=== PATIENT | female | born 1985 | race Caucasian/White ===

== ENCOUNTER 2021-12-05 13:32 | Emergency (ER) | payer SELFPAY ==
--- OUTSIDE RECORDS SUMMARY | 2021-12-05 13:34 | XMS REPORT | Continuity of Care Document ---
:1985 Author Organization [facility] t Address [address] [place] [address] Care Team Providers Name Role Phone Unavailable Unavailable Unavailable Payers Payer Name Policy Type Policy Number Effective Date Expiration Date S ource Problems This patient has no known problems. Allergies, Adverse Reactions, Alerts Allergy Allergy Status Severity Reaction(s) Onset Inactive Treating Comm ents Source Name Type Date Date Clinician No Known DA Active U [facility] Allergie 10-16 [facility] s 00:00: d 00 [facility] No Known DA Active U [facility] Medications This patient has no known medications. Procedures This patient has no known procedures. Encounters Start End Encounter Admission Attending Care Care Encounter Source Date/Time Date/Time Type Type Clinicians Facility Department ID 2020-10-16 Inpatient [facility] ALLIE [id number] [facility] 10:04:00 [id number] [facility] Results Test Description Test Time Test Comments Results Result Comments Source BASIC METABOLIC PANEL 2020-10-16 12:37:00 Test Item Value Reference Range Interpretation Comme nts SODIUM (test code = NA) 133 mmol/l 134.0-147.0 L POTASSIUM (test code = K) 4.8 mmol/L 3.6-5.2 N CHLORIDE (test code = CL) 101 mmol/l 98.0-107.0 N CARBON DIOXIDE (test code = CO2) 23.1 mmol/l 21.0-33.0 N ANION GAP (test code = GAP) 13.7 0-20 N GLUCOSE (test code = GLU) 99 mg/dl 70.0-110.0 N BLOOD UREA NITROGEN (test code = BUN) 9 mg/dl 7.0-18.0 N CREATININE (test code = CREAT) 0.51 mg/dL 0.60-1.30 L GFR NON BLACK (test code = GFRNONBLACK) 145 mL/min 105-110 H GFR BLACK (test code = GFRBLACK) 175 mL/min 127-133 H CALCIUM (test code = CA) 9.1 mg/dl 8.0-10.5 N HEPATIC FUNCTION PANEL [id number] 12:37:00 Test Item Value Reference Range Interpretation Comments TOTAL PROTEIN (test code = PROT) 7.3 gm/dL 6.4-8.2 N ALBUMIN (test code = ALB) 3.5 gm/dl 3.2-4.7 N BILIRUBIN TOTAL (test code = BILT) 0.5 mg/dl 0.0-1.0 N BILIRUBIN DIRECT (test code = 0 mg/dl 0.0-0.3 N BILD) SGOT/AST (test code = AST) 77 Units/L 15-37 H SGPT/ALT (test code = ALT) 32 Units/L 12.0-78.0 N ALKALINE PHOSPHATASE TOTAL (test 70 Units/L 50.0-136.0 N code = ALKP) [id number] 12:37:00 Test Item Value Reference Range Interpretation Comments LIPASE (test code = LIP) 122 Units/L 65.0-230.0 N - CT ABD PELVIS [id number] 12:30:00 [facility] : 1985 Sex: F FAX: Josephine Lomeli DO [phone] Garibaldi: St: REG Name: KIRK NAGEL [facility] : 1985 Age/S: 35/F [address] Unit: [id number] Loc: EDORETHA [place], [place] Phys: LomeliJosephine givens [id number] Acct: [id number] Dis Date: Status: REG ER PHONE #: [phone] Exam Date: 10/16/2020 1213 FAX #: [phone] Reason: Mod periumbilical abd painEXAMS: CPT CODE: [id number] CT ABD PELVIS W/CONT [id number] HISTORY: Mod periumbilical abd pain TECHNIQUE: Helical imaging of the abdomen and pelvis is performed with intravenous contrast. Approximately 100 mL of intravenous contrast was administered. Oral contrast is administered. Sagittal and coronal reconstructions reviewed. CT DLP dose: 488 mGy-cm. Iterative dose reduction technique was utilized. Location T18 Comparisonstudy: None FINDINGS: The images of the lung bases demonstrate no masses, effusions or infiltrates. Heart size is normal. There is no pericardial effusion. The liver is homogeneous, free of focal masses and dilated intrahepatic ducts. The gallbladder is unremarkable. The spleen is normal in size and contour. The pancreas is morphologically normal. No mass, pancreatic duct dilatation or peripancreatic edema is visible. The adrenal glands are normal in size and contour. Neither cystic nor solid renal masses are visible. No hydronephrosis is seen. No renal calculi or perinephric stranding. The urinary bladder is unremarkable. Stomach and duodenum appear unremarkable. The visualized small bowel is unremarkable without evidence of bowel thickening or obstruction. The colon is unremarkable. Normal appendix noted. The uterus is unremarkable. No adnexal masses noted. No retroperitoneal lymphadenopathy is present. The aorta is of normal caliber. The IVC is patent. The portal vein is patent. No evidence of ascites. Abdominal wall is intact. No significant bone lesions. PAGE 1 Signed Report (CONTINUED) FAX: Josephine Lomeli DO [phone] Garibaldi: St: REG -- Name: KIRK NAGEL [facility] : 1985 Age/S: 35/F [address] [facility] [address] Unit: [id number] [place]: [place] [id number] Acct: [id number] Dis Date: Status: REG ER PHONE #: [phone] Exam Date: 10/16/2020 1213 FAX #: [phone] Reason: Mod periumbilical abd pain EXAMS: CPT CODE: [id number] CT ABD PELVIS W/CONT [id number] <Continued> IMPRESSION: 1. Normal appendix seen. 2. No acute abnormality seen. at 1230 Reported and signed by: FERNANDO ALVARADO M.D. CC: Josephine Lomeli DO Technologist: VERN FROST;JEFFRY DAMIAN Trnscrd Dt/Tm: 10/16/2020 (5210) [id number] Orig Print D/T: S: 10/16/2020 (1233 PAGE 2Signed ReportURINALYSIS [id number] 11:52:00 Test Item Value Reference Range Interpretation Comments UA COLOR (test code = COLU) YELLOW UA APPEARANCE (test code = SLHZY APPU) UA GLUCOSE DIPSTICK (test NORMAL mg/dl NORMAL code = DGLUU) UA BILIRUBIN DIPSTICK (test NEGATIVE mg/dL NEGATIVE code = BILU) UA KETONE DIPSTICK (test NEGATIVE mg/dl NEGATIVE code = KETU) UA SPECIFIC GRAVITY (test 1.025 1.000-1.030 code = SGU) UA BLOOD DIPSTICK (test NEGATIVE Loyd/micL NEGATIVE code = GORDO) UA PH DIPSTICK (test code = 5.0 5.0-9.0 JASSI) UA PROTEIN DIPSTICK (test NEGATIVE mg/dl NEGATIVE code = PROU) UA UROBILINIOGEN DIPSTICK NORMAL mg/dl NORMAL (test code = URO) UA NITRITE DIPSTICK (test NEGATIVE NEGATIVE code = RAJESH) UA LEUKOCYTE ESTERASE NEGATIVE Suma/micL NEGATIVE DIPSTICK (test code = LEUU) UA WBC (test code = WBCU) 0-3 WBC/HPF NONE UA RBC (test code = RBCU) 0-2 RBC/HPF 0-3 UA EPITHELIAL CELLS (test 5-10 EPI/HPF 0-3 A code = EPIU) UA BACTERIA (test code = FEW NONE BACU) Specimen comments: Clean CatchUR HCG [id number] 11:52:00 Test Item Value Reference Range Interpretation Comments UR HCG QUAL (test code = HCGQLU) NEGATIVE NEGATIVE Specimen comments: Clean CatchURINALYSIS [id number] 11:50:00 Test Item Value Reference Range Interpretation Comments UA COLOR (test code = COLU) YELLOW UA APPEARANCE (test code = SLHZY APPU) UA GLUCOSE DIPSTICK (test NORMAL mg/dl NORMAL code = DGLUU) UA BILIRUBIN DIPSTICK (test NEGATIVE mg/dL NEGATIVE code = BILU) UA KETONE DIPSTICK (test NEGATIVE mg/dl NEGATIVE code = KETU) UA SPECIFIC GRAVITY (test 1.025 1.000-1.030 code = SGU) UA BLOOD DIPSTICK (test NEGATIVE Loyd/micL NEGATIVE code = GORDO) UA PH DIPSTICK (test code = 5.0 5.0-9.0 JASSI) UA PROTEIN DIPSTICK (test NEGATIVE mg/dl NEGATIVE code = PROU) UA UROBILINIOGEN DIPSTICK NORMAL mg/dl NORMAL (test code = URO) UA NITRITE DIPSTICK (test NEGATIVE NEGATIVE code = RAJESH) UA LEUKOCYTE ESTERASE NEGATIVE Suma/micL NEGATIVE DIPSTICK (test code = LEUU) UA WBC (test code = WBCU) WBC/HPF NONE UA RBC (test code = RBCU) RBC/HPF 0-3 UA EPITHELIAL CELLS (test EPI/HPF 0-3 code = EPIU) UA BACTERIA (test code = NONE BACU) Specimen comments: Clean CatchUR HCG [id number] 11:50:00 Test Item Value Reference Range Interpretation Comments UR HCG QUAL (test code = HCGQLU) NEGATIVE Specimen comments: Clean CatchURINALYSIS [id number] 11:50:00 Test Item Value Reference Range Interpretation Comments UA COLOR (test code = COLU) YELLOW UA APPEARANCE (test code = SLHZY APPU) UA GLUCOSE DIPSTICK (test NORMAL mg/dl NORMAL code = DGLUU) UA BILIRUBIN DIPSTICK (test NEGATIVE mg/dL NEGATIVE code = BILU) UA KETONE DIPSTICK (test NEGATIVE mg/dl NEGATIVE code = KETU) UA SPECIFIC GRAVITY (test 1.025 1.000-1.030 code = SGU) UA BLOOD DIPSTICK (test NEGATIVE Loyd/micL NEGATIVE code = GORDO) UA PH DIPSTICK (test code = 5.0 5.0-9.0 JASSI) UA PROTEIN DIPSTICK (test NEGATIVE mg/dl NEGATIVE code = PROU) UA UROBILINIOGEN DIPSTICK NORMAL mg/dl NORMAL (test code = URO) UA NITRITE DIPSTICK (test NEGATIVE NEGATIVE code = RAJESH) UA LEUKOCYTE ESTERASE NEGATIVE Suma/micL NEGATIVE DIPSTICK (test code = LEUU) UA WBC (test code = WBCU) WBC/HPF NONE UA RBC (test code = RBCU) RBC/HPF 0-3 UA EPITHELIAL CELLS (test EPI/HPF 0-3 code = EPIU) UA BACTERIA (test code = NONE BACU) Specimen comments: Clean CatchUR HCG [id number] 11:50:00 Test Item Value Reference Range Interpretation Comments UR HCG QUAL (test code = HCGQLU) NEGATIVE NEGATIVE Specimen comments: Clean CatchBASIC METABOLIC [id number] 11:42:00 Test Item Value Reference Range Interpretation Comments SODIUM (test code = NA) 133 mmol/l 134.0-147.0 L POTASSIUM (test code = K) 4.8 mmol/L 3.6-5.2 N CHLORIDE (test code = CL) 101 mmol/l 98.0-107.0 N CARBON DIOXIDE (test code = CO2) 23.1 mmol/l 21.0-33.0 N ANION GAP (test code = GAP) 13.7 0-20 N GLUCOSE (test code = GLU) 99 mg/dl 70.0-110.0 N BLOOD UREA NITROGEN (test code = 9 mg/dl 7.0-18.0 N BUN) CREATININE (test code = CREAT) 0.51 mg/dL 0.60-1.30 L GFR NON BLACK (test code = 145 mL/min 105-110 H GFRNONBLACK) GFR BLACK (test code = GFRBLACK) 175 mL/min 127-133 H CALCIUM (test code = CA) 9.1 mg/dl 8.0-10.5 N HEPATIC FUNCTION PANEL [id number] 11:42:00 Test Item Value Reference Range Interpretation Comments TOTAL PROTEIN (test code = PROT) 7.3 gm/dL 6.4-8.2 N ALBUMIN (test code = ALB) 3.5 gm/dl 3.2-4.7 N BILIRUBIN TOTAL (test code = BILT) 0.5 mg/dl 0.0-1.0 N BILIRUBIN DIRECT (test code = 0 mg/dl 0.0-0.3 N BILD) SGOT/AST (test code = AST) Units/L 15-37 SGPT/ALT (test code = ALT) 32 Units/L 12.0-78.0 N ALKALINE PHOSPHATASE TOTAL (test 70 Units/L 50.0-136.0 N code = ALKP) [id number] 11:42:00 Test Item Value Reference Range Interpretation Comments LIPASE (test code = LIP) 122 Units/L 65.0-230.0 N BASIC METABOLIC [id number] 11:36:00 Test Item Value Reference Range Interpretation Comments SODIUM (test code = NA) 133 mmol/l 134.0-147.0 L POTASSIUM (test code = K) 4.8 mmol/L 3.6-5.2 N CHLORIDE (test code = CL) 101 mmol/l 98.0-107.0 N CARBON DIOXIDE (test code = CO2) 23.1 mmol/l 21.0-33.0 N ANION GAP (test code = GAP) 13.7 0-20 N GLUCOSE (test code = GLU) 99 mg/dl 70.0-110.0 N BLOOD UREA NITROGEN (test code = 9 mg/dl 7.0-18.0 N BUN) CREATININE (test code = CREAT) 0.51 mg/dL 0.60-1.30 L GFR NON BLACK (test code = 145 mL/min 105-110 H GFRNONBLACK) GFR BLACK (test code = GFRBLACK) 175 mL/min 127-133 H CALCIUM (test code = CA) 9.1 mg/dl 8.0-10.5 N HEPATIC FUNCTION PANEL [id number] 11:36:00 Test Item Value Reference Range Interpretation Comments TOTAL PROTEIN (test code = PROT) 7.3 gm/dL 6.4-8.2 N ALBUMIN (test code = ALB) 3.5 gm/dl 3.2-4.7 N BILIRUBIN TOTAL (test code = BILT) 0.5 mg/dl 0.0-1.0 N BILIRUBIN DIRECT (test code = mg/dl 0.0-0.3 N BILD) SGOT/AST (test code = AST) Units/L 15-37 SGPT/ALT (test code = ALT) 32 Units/L 12.0-78.0 N ALKALINE PHOSPHATASE TOTAL (test 70 Units/L 50.0-136.0 N code = ALKP) [id number] 11:36:00 Test Item Value Reference Range Interpretation Comments LIPASE (test code = LIP) 122 Units/L 65.0-230.0 N BASIC METABOLIC [id number] 11:30:00 Test Item Value Reference Range Interpretation Comments SODIUM (test code = NA) 133 mmol/l 134.0-147.0 L POTASSIUM (test code = K) 4.8 mmol/L 3.6-5.2 N CHLORIDE (test code = CL) 101 mmol/l 98.0-107.0 N CARBON DIOXIDE (test code = CO2) 23.1 mmol/l 21.0-33.0 N ANION GAP (test code = GAP) 13.7 0-20 N GLUCOSE (test code = GLU) mg/dl 70.0-110.0 BLOOD UREA NITROGEN (test code = mg/dl 7.0-18.0 BUN) CREATININE (test code = CREAT) mg/dL 0.60-1.30 GFR NON BLACK (test code = mL/min 105-110 GFRNONBLACK) GFR BLACK (test code = GFRBLACK) mL/min 127-133 CALCIUM (test code = CA) mg/dl 8.0-10.5 HEPATIC FUNCTION PANEL [id number] 11:30:00 Test Item Value Reference Range Interpretation Comments TOTAL PROTEIN (test code = PROT) gm/dL 6.4-8.2 ALBUMIN (test code = ALB) gm/dl 3.2-4.7 BILIRUBIN TOTAL (test code = BILT) mg/dl 0.0-1.0 BILIRUBIN DIRECT (test code = BILD) mg/dl 0.0-0.3 SGOT/AST (test code = AST) Units/L 15-37 SGPT/ALT (test code = ALT) Units/L 12.0-78.0 ALKALINE PHOSPHATASE TOTAL (test Units/L 50.0-136.0 code = ALKP) [id number] 11:30:00 Test Item Value Reference Range Interpretation Comments LIPASE (test code = LIP) Units/L 65.0-230.0 CBC W/AUTO [id number] 10:58:00 Test Item Value Reference Range Interpretation Comments WHITE BLOOD CELL (test code = 13.8 K/mm3 4.5-11.0 H WBC) RED BLOOD CELL (test code = 4.40 M/mm3 3.80-5.20 N RBC) HEMOGLOBIN (test code = HGB) 13.5 gm/dL 12.0-16.0 N HEMATOCRIT (test code = HCT) 41.2 % 36.0-48.0 N MEAN CELL VOLUME (test code = 93.6 UM3 82.0-99.0 N MCV) MEAN CELL HGB (test code = MCH) 30.7 UUG 25.5-32.5 N MEAN CELL HGB CONCETRATION 32.8 gm/dL 29.0-35.5 N (test code = MCHC) RED CELL DISTRIBUTION WIDTH 13.3 % 11.5-15.0 N (test code = RDW) RED CELL DISTRIBUTION WIDTH SD 46.3 fL 34.8-50.2 N (test code = RDW-SD) PLATELET COUNT (test code = 308 K/mm3 150-400 N PLT) MEAN PLATELET VOLUME (test code 11.8 fl 7.4-10.4 H = MPV) NEUTROPHIL % (test code = NT%) 73.9 % 49.0-76.0 N IMMATURE GRANULOCYTE % (test 0.4 % 0.0-0.4 N code = IG%) LYMPHOCYTE % (test code = LY%) 18.5 % 23.0-38.0 L MONOCYTE % (test code = MO%) 6.1 % 1.0-10.0 N EOSINOPHIL % (test code = EO%) 0.7 % 1.0-5.0 L BASOPHIL % (test code = BA%) 0.4 % 0.0-1.0 N NUCLEATED RBC % (test code = 0.0 % 0.0-0.1 N NRBC%) NEUTROPHIL # (test code = NT#) 10.2 K/mm3 2.4-6.3 H IMMATURE GRANULOCYTE # (test 0.05 x10 3/uL 0.00-0.07 N code = IG#) LYMPHOCYTE # (test code = LY#) 2.6 K/mm3 1.2-4.0 N MONOCYTE # (test code = MO#) 0.9 K/mm3 0.0-0.6 H EOSINOPHIL # (test code = EO#) 0.1 K/MM3 0.0-0.7 N BASOPHIL # (test code = BA#) 0.1 K/mm3 0.0-0.2 N NUCLEATED RBC # (test code = 0.00 X10 3uL 0.00-0.01 N NRBC#)
[2021-12-05 14:12] LABS: Absolute Lymphocytes (CBC) 1.7 K/uL (0.7-4.9); Hematocrit 29.7 % (36.0-45.0); Lymphocytes % 13.3 % (15.3-44.8); MPV 8.1 fL (7.6-11.3); RBC Red Blood Cell Count 3.82 M/uL (3.86-4.86)
[2021-12-05] MEDS ORDERED: ONDANSETRON 4 MG/2 ML VIAL ONE (14:20)
[2021-12-05] MEDS ORDERED: NA CHLORIDE 0.9% 1,000 ML ONE (14:20)
[2021-12-05] MEDS ORDERED: MORPHINE 4 MG/ML SYR ONE (14:20)
[2021-12-05 14:30] LABS: ALT/SGPT 32 U/L (12-78); AST/SGOT 20 U/L (15-37); Albumin 3.6 g/dL (3.4-5.0); Alkaline Phosphatase 73 U/L (45-117); BUN Blood Urea Nitrogen 9 mg/dL (7-18); Bicarbonate 24 mmol/L (21-32); Bilirubin Total 0.3 mg/dL (0.2-1.0); Glucose Level 108 mg/dL (74-106); Lipase 92 U/L (73-393); Potassium 3.7 mmol/L (3.5-5.1); Protein, Total 7.4 g/dL (6.4-8.2); Sodium Level 139 mmol/L (136-145)
--- NOTE | 2021-12-05 14:52 | RAD REPORT ---
EXAM DESCRIPTION: CT - Stone Protocol - 12/05/2021 2:27 pm CLINICAL HISTORY: right flank pain COMPARISON: No comparisons TECHNIQUE: Axial 3 mm thick images were obtained without oral or IV contrast. The [id number] span s the entirety of the system including uppermost abdomen and lung bases. All CT scans are performed using dose optimization technique as appropriate and may include automated exposure control or mA/KV adjustment according to patient size. FINDINGS: No hydronephrosis is present and no obstructing ureteral calculi. No suspicious renal mass es. Isodense masses and pyelonephritis are not excluded on a stone protocol CT scan. No significant a drenal finding. No urinary bladder suspicious finding. Both ovaries are identified without suspicious finding. Tubal occlusion devices are in place without tube dilatation. The uterus is enlarged and lobulated. On noncontrast imaging, the endometrium- myome trium interface is not well discerned. Uterus likely contains 1 or more moderate to large fibroids. A n acute finding is not seen. Follow-up outpatient pelvic ultrasound could be performed if uterine fib roids have not been previously diagnosed. Imaged portions of the liver, spleen and pancreas show no suspicious findings on non-contrast imaging . No gallbladder or biliary tree abnormality identified. No bowel dilatation or bowel wall thickening. Appendix is normal. No acute GI finding. No mass or bulky lymphadenopathy. Well-healed abdominoplasty changes are present. No free air, free f luid or inflammatory stranding. No significant bony abnormality. No acute vascular finding. There is a left common iliac vein stent in place. IMPRESSION: No hydronephrosis, obstructing calculus or acute finding. No appendicitis or acute GI finding. Enlarged uterus likely due to 1 or more large fibroids. If not previously diagnosed, probable fibroid s could be further evaluated with dedicated outpatient pelvic imaging. Isodense masses and pyelonephritis are not excluded on stone protocol technique.
[2021-12-05 14:56] LABS: Bilirubin Direct < 0.1 mg/dL (0-0.2)
--- NOTE | 2021-12-05 16:16 | RAD REPORT ---
EXAM DESCRIPTION: US - Pelvis Complete - 12/05/2021 3:35 pm CLINICAL HISTORY: pelvic pain COMPARISON: Knee Right 3 View dated 10/17/2019No comparisonsStone Protocol dated 12/05/2021 TECHNIQUE: Transabdominal pelvic sonography was performed. FINDINGS: Uterus is enlarged. In the central uterus a 5.6 cm oval heterogeneous hypoechoic solid mas s is present. There is an adjacent second mass 5.2 cm in size showing similar imaging characteristics . Sonographic findings are consistent with large fibroids and would account for the overall enlargeme nt of the uterus seen on this examination and on the CT study performed earlier. Endometrial stripe i s not clearly defined. No sonographic findings of an enlarged or thickened endometrial stripe. In the posteroinferior uterus a 15 millimeter oval hypoechoic focus is probably an additional small fibroid . Overall uterus is enlarged measuring 13.6 x 7.5 x 9.8 cm. Right ovary is identified, normal in size with normal blood flow in the ovarian stroma. No right ovar milka or right adnexal abnormality. Left ovary was obscured by large uterine size left adnexal bowel. N o left adnexal mass seen. CT study showed a normal-sized left ovary in the lateral superior aspect of the pelvis. No free fluid in the cul de sac. IMPRESSION: Enlarged multi fibroid uterus. The large central fibroids distort the endometrial stripe which is not clearly defined. No endometria l abnormality is identifiable. Unremarkable right ovary and right adnexa. Nonvisualization of the left ovary. Left ovary was normal size on the earlier CT study.
[2021-12-05 17:32] LABS: Urine Blood Negative (Negative); Urine Glucose Negative (Negative); Urine Protein Negative (Negative); Urine pH 6.5 (5.0-7.0)
--- NOTE | 2021-12-05 17:59 | EDPHYS ---
Physician Documentation [facility] Name: Keshia Fonseca Age: 36 yrs Sex: Female : 1985 Arrival Date: 12/05/2021 Time: 13:32 Bed 19 Private MD: KATTY Physician Elio Valenzuela HPI: 12/05 13:47 This 36 yrs old Female presents to ER via Ambulatory with complaints of Abdominal Pain. m 13:47 The patient presents with abdominal pain. Onset: The symptoms/episode began/occurred jmm gradually, this morning. The symptoms radiate to right back. The symptoms are described as achy, sharp. Modifying factors: The symptoms are alleviated by nothing, the symptoms are aggravated by nothing. The patient has not experienced similar symptoms in the past. 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 - Social history:: Smoking status: Patient reports the use of cigarette tobacco products, smokes one pack cigarettes per day. Patient uses alcohol, occasionally. Patient/guardian denies using street drugs. ROS: 13:47 Constitutional: Negative for fever, chills, and weight loss, Cardiovascular: Negative jm for chest pain, palpitations, and edema, Respiratory: Negative for shortness of breath, cough, wheezing, and pleuritic chest pain. 13:47 Abdomen/GI: Positive for abdominal pain. 13:47 Back: Positive for flank pain, on the right. 13:47 All other systems are negative. Exam: 13:47 Constitutional: This is a well developed, well nourished patient who is awake, alert, jmm and in no acute distress. Head/Face: atraumatic. Eyes: EOMI, no conjunctival erythema appreciated ENT: Moist Mucus Membranes Neck: Trachea midline, Supple Chest/axilla: Normal chest wall appearance and motion. Cardiovascular: Regular rate and rhythm. No edema appreciated Respiratory: Normal respirations, no respiratory distress appreciated 13:47 Abdomen/GI: Inspection: abdomen appears normal, Bowel sounds: normal, Palpation: soft, mild abdominal tenderness, in the suprapubic area and right lower quadrant. 13:47 Back: CVA tenderness, is absent. 13:47 Musculoskeletal/extremity: ROM: intact in all extremities. 13:47 Skin: Appearance: Color: normal in color. 13:47 Neuro: Orientation: is normal, Mentation: is normal, Memory: is normal. 13:47 Psych: Behavior/mood is pleasant, cooperative. Vital Signs: 13:47 BP 134 / 95; Pulse 80; Resp 18; Temp 98.2(TE); Pulse Ox 97% on R/A; Weight 68.04 kg; ld1 Height 5 ft. 3 in. (160.02 cm); Pain 8/10; 15:00 BP 129 / 79; Pulse 80; Resp 16; Pulse Ox 98% on R/A; ab2 16:16 BP 135 / 76; Pulse 79; Resp 16; Pulse Ox 98% on R/A; ab2 17:17 BP 131 / 76; Pulse 83; Resp 18; Pulse Ox 99% ; ab2 18:28 BP 126 / 71; Pulse 74; Resp 16; Pulse Ox 100% on R/A; ab2 13:47 Body Mass Index 26.57 (68.04 kg, 160.02 cm) ld1 MDM: 13:58 Patient medically screened. kirill 17:45 Data reviewed: vital signs, nurses notes. [facility] 17:55 Counseling: I had a detailed discussion with the patient and/or guardian regarding: the [facility] historical points, exam findings, and any diagnostic results supporting the discharge/admit diagnosis, lab results, radiology results, the need for outpatient follow up, to return to the emergency department if symptoms worsen or persist or if there are any questions or concerns that arise at home. ED course: Imaging studies negative. Advised to follow up with obgyn for further evaluation. Patient understood and agrees with the plan of care. . 12/05 13:57 Order name: Basic Metabolic Panel; Complete Time: 14:59 [facility] 12/05 13:57 Order name: CBC with Diff; Complete Time: 14:19 [facility] 12/05 13:57 Order name: Hepatic Function; Complete Time: 14:59 [facility] 12/05 13:57 Order name: Lipase; Complete Time: 14:59 [facility] 12/05 15:41 Order name: Urine --Ancillary (enter results) bd 12/05 17:32 Order name: Urine Dipstick-Ancillary; Complete Time: 17:38 [facility] 12/05 13:57 Order name: IV Saline Lock; Complete Time: 14:05 [facility] 12/05 13:57 Order name: Labs collected and sent; Complete Time: 14:05 [facility] 12/05 14:13 Order name: CT Stone Protocol; Complete Time: 14:55 [facility] 12/05 14:57 Order name: US Pelvis Complete; Complete Time: 16:17 [facility] 12/05 14:19 Order name: Urine Dipstick-Ancillary (obtain specimen); Complete Time: 17:32 [facility] Administered Medications: 14:20 Drug: NS 0.9% 1000 ml Route: IV; Rate: 1 bolus; Site: right antecubital; ab2 17:33 Follow up: Response: No adverse reaction; IV Status: Completed infusion ab2 14:21 Drug: morphine 4 mg Route: IVP; Site: right antecubital; ab2 17:33 Follow up: Response: No adverse reaction ab2 14:21 Drug: Zofran (Ondansetron) 4 mg Route: IVP; Site: right antecubital; ab2 17:33 Follow up: Response: No adverse reaction ab2 Disposition Summary: 12/05/21 17:59 Discharge Ordered Location: Home [facility] Condition: Stable [facility] Diagnosis - Other abdominal pain [facility] Followup: [facility] - With: Curry Welsh MD - When: As needed - Reason: Recheck today's complaints, Continuance of care, Re-evaluation by your physician Discharge Instructions: - Discharge Summary Sheet [facility] - Uterine Fibroids [facility] Forms: - Medication Reconciliation Form [facility] - Thank You Letter [facility] - Antibiotic Education [facility] - Prescription Opioid Use [facility] Prescriptions: - Diclofenac Sodium 75 mg Oral Tablet Sustained Release - take 1 tablet by ORAL route 2 times per day; 30 tablet; Refills: 0, Product [facility] Selection Permitted Addendum: 12/09/2021 18:23 Co-signature as Attending Physician, Elio Valenzuela MD I agree with the assessment and c haider plan of care. Signatures: Dispatcher [employer] Elio Real MD MD cha Mickail, Joel, PA PA [facility] Fernando, Ashley, RN RN ld1 Allen Patrick ab2 Corrections: (The following items were deleted from the chart) 12/05 13:50 13:49 Allergies: No Known Allergies; ld1 1 13:50 13:49 Home Meds: None; ld1 ld1 14: 14:20 Urine Test ordered. baldev ab2
--- NOTE | 2021-12-05 17:59 | ER ---
Nurse's Notes [facility] Name: Keshia Fonseca Age: 36 yrs Sex: Female : 1985 Arrival Date: 12/05/2021 Time: 13:32 Bed 19 Private MD: Diagnosis: Other abdominal pain Presentation: 12/05 13:47 Chief complaint: Patient states: Right lower quadrant pain beginning this morning - ld1 radiates to lower right flank. N/V since this morning. Coronavirus screen: At this time, the client does not indicate any symptoms associated with coronavirus-19. Ebola Screen: No symptoms or risks identified at this time. Initial Sepsis Screen: Does the patient meet any 2 criteria? No. Patient's initial sepsis screen is negative. Does the patient have a suspected source of infection? No. Patient's initial sepsis screen is negative. Risk Assessment: Do you want to hurt yourself or someone else? Patient reports no desire to harm self or others. Onset of symptoms was December 05, 2021. 13:47 Method Of Arrival: Ambulatory ld1 13:47 Acuity: GELA 3 ld1 Triage Assessment: 13:49 General: Appears in no apparent distress. uncomfortable, Behavior is cooperative, ld1 anxious. Pain: Complains of pain in right lower quadrant Pain radiates to right low back Pain currently is 8 out of 10 on a pain scale. Quality of pain is described as stabbing, Pain began suddenly, Is continuous. Neuro: Level of Consciousness is awake, alert, obeys commands, Oriented to person, place, time, situation. Cardiovascular:. Respiratory: Airway is patent Respiratory effort is even, unlabored. GI: Abdomen is round non-distended. 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 - Social history:: Smoking status: Patient reports the use of cigarette tobacco products, smokes one pack cigarettes per day. Patient uses alcohol, occasionally. Patient/guardian denies using street drugs. Screenin:15 Abuse screen: Denies threats or abuse. Denies injuries from another. Nutritional ab2 screening: No deficits noted. Tuberculosis screening: No symptoms or risk factors identified. Fall Risk None identified. Assessment: 16:13 General: Appears in no apparent distress. uncomfortable, Behavior is calm, cooperative, ab2 appropriate for age, crying. Pain: Complains of pain in right lower quadrant. 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 Gait is steady. Cardiovascular: No deficits noted. Denies chest pain, shortness of breath, Heart tones S1 S2 present. Respiratory: No deficits noted. Airway is patent Respiratory effort is even, unlabored, Respiratory pattern is regular, symmetrical, Breath sounds are clear bilaterally. GI: Abdomen is round non-distended, Bowel sounds present X 4 quads. Abdomen is tender to palpation X 4 quads. : No deficits noted. No signs and/or symptoms were reported regarding the genitourinary system. EENT: No deficits noted. No signs and/or symptoms were reported regarding the EENT system. Derm: No deficits noted. No signs and/or symptoms reported regarding the dermatologic system. Skin is intact, is healthy with good turgor, Skin is pink, warm \T\ dry. Musculoskeletal: No deficits noted. No signs and/or symptoms reported regarding the musculoskeletal system. 17:18 Reassessment: Patient appears in no apparent distress at this time. Awaiting urine from ab2 patient for urine dipstick. Vital Signs: 13:47 BP 134 / 95; Pulse 80; Resp 18; Temp 98.2(TE); Pulse Ox 97% on R/A; Weight 68.04 kg; ld1 Height 5 ft. 3 in. (160.02 cm); Pain 8/10; 15:00 BP 129 / 79; Pulse 80; Resp 16; Pulse Ox 98% on R/A; ab2 16:16 BP 135 / 76; Pulse 79; Resp 16; Pulse Ox 98% on R/A; ab2 17:17 BP 131 / 76; Pulse 83; Resp 18; Pulse Ox 99% ; ab2 18:28 BP 126 / 71; Pulse 74; Resp 16; Pulse Ox 100% on R/A; ab2 13:47 Body Mass Index 26.57 (68.04 kg, 160.02 cm) ld1 ED Course: 13:32 Patient arrived in ED. am2 13:49 Triage completed. ld1 13:49 Arm band placed on right wrist. ld1 13:55 Allen Patrick is Primary Nurse. ab2 13:56 Solomon Zaldivar PA is PHCP. jmm 13:56 Elio Valenzuela MD is Attending Physician. jmm 14:00 No provider procedures requiring assistance completed. Inserted saline lock: 20 gauge ab2 in right antecubital area, using aseptic technique. 14:05 Basic Metabolic Panel Sent. ab2 14:05 CBC with Diff Sent. ab2 14:05 Hepatic Function Sent. ab2 14:05 Lipase Sent. ab2 14:26 CT Stone Protocol In Process Unspecified. EDMS 15:36 US Pelvis Complete In Process Unspecified. EDMS 16:15 Patient has correct armband on for positive identification. Bed in low position. Call ab2 light in reach. Side rails up X2. 17:32 Urine Dipstick-Ancillary Sent. ab2 17:57 Curry Welsh MD is Referral Physician. jmm 18:28 IV discontinued, intact, bleeding controlled, No redness/swelling at site. Pressure ab2 dressing applied. Administered Medications: 14:20 Drug: NS 0.9% 1000 ml Route: IV; Rate: 1 bolus; Site: right antecubital; ab2 17:33 Follow up: Response: No adverse reaction; IV Status: Completed infusion ab2 14:21 Drug: morphine 4 mg Route: IVP; Site: right antecubital; ab2 17:33 Follow up: Response: No adverse reaction ab2 14:21 Drug: Zofran (Ondansetron) 4 mg Route: IVP; Site: right antecubital; ab2 17:33 Follow up: Response: No adverse reaction ab2 Outcome: 17:59 Discharge ordered by . jmm 18:28 Discharged to home ambulatory. ab2 18:28 Condition: good 18:28 Discharge instructions given to patient, Instructed on discharge instructions, follow up and referral plans. Demonstrated understanding of instructions, follow-up care, medications, Prescriptions given X 1. 18:28 Patient left the ED. ab2 Signatures: Dispatcher [employer] EDMS Solomon Zaldivar PA PA jmm Moreno, Amanda am2 Ashley King, CHITRA RN ld1 Allen Patrick2 Corrections: (The following items were deleted from the chart) 13 13:49 Allergies: No Known Allergies; ld1 ld1 13:49 Home Meds: None; ld1 ld1
[2021-12-05 19:06] VITALS: TEMP 98.2
[2021-12-05 19:11] VITALS: BP 126/71; O2SAT 100
[2021-12-05 20:45] LABS: Urine Specific Gravity/Preg 1.025 (1.005-1.030)
== END 2021-12-05 18:28 | disposition home or self-care (01) ==
LOC: ER 13:32
DX: R10.9 Unspecified abdominal pain (principal); I10 Essential (primary) hypertension; F32.A Depression, unspecified; F17.210 Nicotine dependence, cigarettes, uncomplicated; Z86.718 Personal history of other venous thrombosis and embolism
CPT/HCPCS: 36415; 74176; 76377; 76856; 80048; 80076; 81003; 81025; 83690; 85025; 96361; 96374; 96375; 99284; J2405; J7030